=== PATIENT | male | born 1995 | race African-American/Black ===

== ENCOUNTER → 2020-01-20 | Outpatient (CLI) | payer SELFPAY | LOC: M LABSMTC 13:55 | PROVIDERS: ATTEND Pediatrics | DX: Z20.828 Contact with and (suspected) exposure to other viral communicable diseases (principal) ==

== ENCOUNTER → 2020-05-01 | Outpatient (CLI) | payer SELFPAY | LOC: M LABSMTC 10:23 | PROVIDERS: ATTEND Pediatrics | DX: Z11.52 Encounter for screening for COVID-19 (principal) ==

== ENCOUNTER → 2022-07-12 | Outpatient (CLI) | payer OTHER | LOC: M RAD 07:38 | PROVIDERS: ATTEND Pain Medicine Interventional Pain Medicine | DX: M47.814 Spondylosis without myelopathy or radiculopathy, thoracic region (principal) ==